=== PATIENT | male | born 1970 | race Caucasian/White ===

== ENCOUNTER 2017-03-21 11:30 | Emergency (ER) | payer BC ==
[~2017-03-21] VITALS: Ht 195.6 cm; Wt 152.2 kg
[2017-03-21] MEDS ORDERED: NAPROXEN500 MG PO (13:07)
[2017-03-21 13:34] VITALS: BP 128/108
== END 2017-03-21 13:36 | disposition home or self-care (01) ==
LOC: EME 11:30
PROC: 3E0234Z Introduction of Serum, Toxoid and Vaccine into Muscle, Percutaneous Approach (ICD-10-PCS; principal; 2017-03-21)
DX: S93.601A Unspecified sprain of right foot, initial encounter (principal); S91.112A Laceration without foreign body of left great toe without damage to nail, initial encounter; W10.9XXA Fall (on) (from) unspecified stairs and steps, initial encounter; Z23 Encounter for immunization
CPT/HCPCS: 73630; 99281; 99283